=== PATIENT | male | born 1995 ===

== ENCOUNTER 2018-11-25 04:48 | Observation (INO) | payer OTHER ==
[2018-11-25] MEDS ORDERED: Sodium Chloride 0.9% 1,000 ML IV ONE (05:01)
--- NOTE | 2018-11-25 05:22 | ED PDOC ---
Arrival/HPI - General Chief Complaint: Back Pain Time Seen by Provider: 11/25/18 04:51 Historian: Patient - History of Present Illness Narrative History of Present Illness (Text): 11/25/18 05:19 A 23 year old male, with no significant past medical history, presents to the emergency department with complaint of onset of neck pain 3 days ago. Last night associated with onset of fever. He denies any back pain,throat pain, nausea/ vomiting/ diarrhea, arm or leg weakness, history of any trauma. Time/Duration: Other (3 days) Symptom Onset: Gradual Symptom Course: Unchanged Activities at Onset: Rest, Light Context: Home Past Medical History - Provider Review Nursing Documentation Reviewed: Yes Primary Care Provider: Maciej Paulino - Infectious Disease Hx of Infectious Diseases: None - Psychiatric Hx Substance Use: No Family/Social History - Physician Review Nursing Documentation Reviewed: Yes Family/Social History: No Known Family HX Smoking Status: Never Smoked Hx Alcohol Use: Yes Frequency of alcohol use: Socially Hx Substance Use: No Allergies/Home Meds Allergies/Adverse Reactions: Allergies No Known Allergies Allergy (Verified 11/25/18 04:52) Home Medications: Home Meds Medication Instructions Recorded Confirmed No Known Home Med 11/25/18 11/25/18 Review of Systems - Physician Review All systems were reviewed & negative as marked: Yes - Review of Systems Constitutional: Fevers Respiratory: absent: SOB, Cough Cardiovascular: absent: Chest Pain, ANTONY Gastrointestinal: absent: Abdominal Pain, Stool Changes, Diarrhea, Nausea, Vomiting Genitourinary Male: absent: Urinary Output Changes Musculoskeletal: Neck Pain. absent: Back Pain Neurological: absent: Headache, Dizziness Physical Exam Vital Signs Reviewed: Yes Vital Signs Temp Pulse Resp BP Pulse Ox 11/25/18 04:53 102.0 F H 126 H 20 130/87 100 Temperature: Febrile Blood Pressure: Normal Pulse: Tachycardic Respiratory Rate: Normal Appearance: Positive for: Well-Appearing, Non-Toxic, Comfortable Pain Distress: None Mental Status: Positive for: Alert and Oriented X 3 - Systems Exam Head: Present: Atraumatic, Normocephalic Pupils: Present: PERRL Extroacular Muscles: Present: EOMI Conjunctiva: Present: Normal Mouth: Present: Moist Mucous Membranes Neck: Present: Normal Range of Motion, Meningeal Signs (+Brudzinski Neg.- Kernig), Other (nucal rigidity. No dorsal spinal tenderness. ) Respiratory/Chest: Present: Clear to Auscultation, Good Air Exchange. No: Respiratory Distress, Accessory Muscle Use Cardiovascular: Present: Regular Rate and Rhythm, Normal S1, S2. No: Murmurs Abdomen: No: Tenderness, Distention, Peritoneal Signs Back: Present: Normal Inspection Upper Extremity: Present: Normal Inspection. No: Cyanosis, Edema Lower Extremity: Present: Normal Inspection. No: Edema Neurological: Present: GCS=15, CN II-XII Intact, Speech Normal, Motor Func Grossly Intact, Normal Sensory Function Skin: Present: Warm, Dry, Normal Color. No: Rashes Psychiatric: Present: Alert, Oriented x 3, Normal Insight, Normal Concentration Medical Decision Making ED Course and Treatment: 11/25/18 05:21 Impression: A 23 year old male presents to the emergency department with complaint of fever and neck pain. Plan: -- EKG -- Chest X-ray -- Labs -- Urinalysis -- Blood/ Urine Culture -- Tylenol and IV Fluids -- Reassess and disposition Prior Visits: Notes and results from previous visits were reviewed. Progress Notes: 11/25/18 05:50 Sinus tachycardia@125, no acute changes 11/25/18 07:03 Case was discussed with the hospitalist /accepts to the hospitalist service/to emergency department to evaluate patient /follow up care - Lab Interpretations I have reviewed the lab results: Yes - RAD Interpretation Narrative RAD Interpretations (Text): 11/25/18 06:58 CXR-No acute process Radiology Orders: 11/25/18 05:02 CHEST PORTABLE [RAD] Stat Railroad Operator: ED Physician - EKG Interpretation Interpreted by ED Physician: Yes Type: 12 lead EKG - Medication Orders Current Medication Orders: Sodium Chloride (Sodium Chloride 0.9%) 1,000 mls @ 2,000 mls/hr IV .Q30M ONE Stop: 11/25/18 05:30 Discontinued Medications Acetaminophen (Tylenol 325mg Tab) 650 mg PO STAT STA Stop: 11/25/18 05:04 Procedures - Additional Procedures Additional Procedures: lumbar puncture Progress: Area was prepped and draped using sterile technique/lateral decubitus position/cleansed with Betadine/1% Lidocaine to the area to anesthetize/25 gauge needle was inserted in the lumbar vertebral interspace/non traumatic with CSF fluid obtained for analysis /procedure was tolerated well - Scribe Statement The provider has reviewed the documentation as recorded by the Scribe Adilene Henriquez Provider Janibe Attestation: All medical record entries made by the Scribe were at my direction and personally dictated by me. I have reviewed the chart and agree that the record accurately reflects my personal performance of the history, physical exam, medical decision making, and the department course for this patient. I have also personally directed, reviewed, and agree with the discharge instructions and disposition. Disposition/Present on Arrival - Present on Arrival Any Indicators Present on Arrival: No History of DVT/PE: No History of Uncontrolled Diabetes: No Urinary Catheter: No History of Decub. Ulcer: No History Surgical Site Infection Following: None - Disposition Have Diagnosis and Disposition been Completed?: Yes Diagnosis: SIRS (systemic inflammatory response syndrome), Fever, Neck pain, Neck stiffness Disposition: HOSPITALIZED Disposition Time: 06:55 Patient Problems: Current Active Problems Problem Status Onset Fever Acute Neck pain Acute Neck stiffness Acute SIRS (systemic inflammatory response syndrome) Acute Condition: STABLE
[2018-11-25 05:37] LABS: VENOUS BLOOD GAS BASE EXCESS 2.2 mmol/L (0.0-2.0); VENOUS BLOOD GAS PO2 76 mm/Hg (30-55); VENOUS BLOOD PH 7.39 (7.32-7.43)
[2018-11-25 05:50] LABS: EOS % 0.1 % (1.5-5.0); HEMOGLOBIN 14.9 g/dL (14.0-18.0); INR 1.13; LYMPH # 0.7 (1.2-3.4); LYMPH % 6.6 % (22.0-35.0); MEAN CELL VOLUME 83.5 fl (80.0-105.0); MEAN CORPUSCULAR HGB CONC 32.3 g/dl (31.0-37.0); MEAN PLATELET VOLUME 10.2 fl (7.0-11.0); MONO % 9.8 % (1.0-6.0); PARTIAL THROMBOPLASTIN TIME 33.1 Seconds (26.9-38.3); PROTHROMBIN TIME 12.8 SECONDS (9.4-12.5); RBC 5.52 10^6/uL (3.5-6.1); RED CELL DISTRIBUTION WIDTH 13.6 % (11.5-14.5)
[2018-11-25] MEDS ORDERED: Lidocaine 1% Inj (20ml) ONE (06:05)
[2018-11-25] MEDS ORDERED: cefTRIAXone 2 GM IN NS 2 GM/100 ML BAG IVPB STA (06:16)
[2018-11-25] MEDS ORDERED: Vancomycin 1gm in NS 250ml 1 GM/250 ML BAG IVPB STA (06:17)
[2018-11-25 06:30] LABS: FLUID TYPE SPINAL FLUID
[2018-11-25] MEDS ORDERED: Dexamethasone 20 mg / 5 ml Inj IVP STA (07:20)
[2018-11-25 08:13] LABS: CSF APPEARANCE CLEAR/COLORLESS (CLEAR); CSF VOLUME 2 mL (0-1)
[2018-11-25] MEDS ORDERED: Vancomycin 1.5 GM in Sodium Chloride 0.9% 500 ML IVPB SCH (08:15)
[2018-11-25] MEDS ORDERED: Sodium Chloride 0.9% 1,000 ML IV SCH (08:15)
[2018-11-25 08:37] LABS: ALB/GLOB RATIO 1.1 (1.1-1.8); ALBUMIN 3.2 g/dL (3.0-4.8); ALT/SGPT 39 U/L (7-56); AST/SGOT 23 U/L (17-59); BLOOD UREA NITROGEN 14 mg/dL (7-21); CALCIUM 7.7 mg/dL (8.4-10.5); GFR NON-AFRICAN AMERICAN > 60
[2018-11-25 09:22] LABS: PH,URINE 6.5 (4.7-8.0); URINE BILIRUBIN NEGATIVE (NEGATIVE); URINE BLOOD NEGATIVE (NEGATIVE); URINE GLUCOSE (UA) NEGATIVE (NEGATIVE); URINE LEUKOCYTE ESTERASE NEGATIVE Leu/uL (NEGATIVE); URINE PROTEIN NEGATIVE mg/dL (<30 mg/dL); URINE UROBILINOGEN 0.2 E.U./dL (<1 E.U./dL)
[2018-11-25] MEDS ORDERED: Sodium Chloride 0.9% 1,000 ML IV STA (09:26)
[2018-11-25] MEDS ORDERED: Magnesium Sulfate 2 gm/50 ml 2 GM/50 ML BAG IVPB ONE (09:30)
[2018-11-25 09:31] LABS: URINE APPEARANCE CLEAR (CLEAR); URINE COLOR YELLOW (YELLOW)
--- NOTE | 2018-11-25 10:24 | CT ---
Date of service: 11/25/2018 PROCEDURE: CT HEAD WITHOUT CONTRAST. HISTORY: r/o meningitis COMPARISON: None available. TECHNIQUE: Axial computed tomography images were obtained through the head/brain without intravenous contrast. Supplemental Coronal and Sagittal projections created and reviewed. Radiation dose: Total exam DLP = 716.71 mGy-cm. This CT exam was performed using one or more of the following dose reduction techniques: Automated exposure control, adjustment of the mA and/or kV according to patient size, and/or use of iterative reconstruction technique. FINDINGS: HEMORRHAGE: No intracranial hemorrhage. BRAIN: No mass effect or edema. No atrophy or chronic microvascular ischemic changes. VENTRICLES: Unremarkable. No hydrocephalus. CALVARIUM: Unremarkable. PARANASAL SINUSES: Unremarkable as visualized. No significant inflammatory changes. MASTOID AIR CELLS: Unremarkable as visualized. No inflammatory changes. OTHER FINDINGS: None. IMPRESSION: No acute intracranial abnormalities. No significant findings to account for the clinical presentation. Limitations of the current examination: Unenhanced CT is an insensitive and inaccurate study in the assessment of clinically suspected meningitis. Recommended procedure of choice: MRI brain.
--- NOTE | 2018-11-25 10:27 | CT ---
Date of service: 11/25/2018 PROCEDURE: CT Cervical Spine without contrast HISTORY: Meningitis suspected. Systemic inflammatory response additional clinical information provided. COMPARISON: None available. TECHNIQUE: Axial computed tomography images were obtained of the cervical spine without the use of intravenous contrast. Coronal and sagittal reformatted images were created and reviewed. Radiation dose: Total exam DLP = 665.07 mGy-cm. This CT exam was performed using one or more of the following dose reduction techniques: Automated exposure control, adjustment of the mA and/or kV according to patient size, and/or use of iterative reconstruction technique. FINDINGS: VERTEBRAE: Mild kyphosis replaces anatomic lordosis. Point of maximum angulation C3-4. DISCS/SPINAL CANAL/NEURAL FORAMINA: No significant central canal or neural foraminal stenosis. Discs heights are grossly preserved. PARASPINAL SOFT TISSUES: Unremarkable. OTHER FINDINGS: None. IMPRESSION: Unremarkable CT of the cervical spine. Limitations of the current examination: Unenhanced CT scan of the cervical spine lacks sensitivity and specificity for acute inflammatory processes including clinically suspected meningitis. Recommended procedure of choice: Cervical spine MRI.
--- NOTE | 2018-11-25 10:40 | CARD ---
APPROVED REPORT Date of service: 11/25/2018 EKG Measurement Heart [id number] <Conclusion> Sinus tachycardia Otherwise normal ECG
--- NOTE | 2018-11-25 11:50 | RAD ---
Date of service: 11/25/2018 HISTORY: Sepsis Patient COMPARISON: No prior. FINDINGS: LUNGS: No active pulmonary disease. PLEURA: No significant pleural effusion identified, no pneumothorax apparent. CARDIOVASCULAR: No atherosclerotic calcification present Normal. OSSEOUS STRUCTURES: No significant abnormalities. VISUALIZED UPPER ABDOMEN: Normal. OTHER FINDINGS: None. IMPRESSION: No active disease.
--- NOTE | 2018-11-25 12:32 | CP.PCM.HP ---
<Rogelio Sorenson - Last Filed: 11/25/18 12:05> History of Present Illness - History of Present Illness History of Present Illness: Internal Medicine H&P (Dr. Haro's Service) CC: Neck pain/Fever HPI: Mr. aGrcia is a 23 year old male with no significant past medical history who presents with fevers and neck pain. Patient is alert and oriented to person, place, time and event. Patient is accompanied by his mother who is at bedside. Patient reports that four days prior to arrival he developed a dull/aching pain in his posterior neck that started while patient was at rest. He denies ever having this pain in the past and also denies any trauma or significant inciting event to his recollection. He reports that this pain was constant at first but has been intermittent over the past 24-48 hours. He denies any radiation and reports that he experienced minimal relief with massage therapy provided by family. Last night, patient developed fevers/chills and decided that he needed to be further evaluated. Of note, patient is a college student but lives at home and not in a dormitory. He is also in a work-study program but does [employer] only for this. He denies having gotten any meningicoccal vaccine but does report that he had standard labs done by his PMD, Dr. Paulino. Patient reports that he has had no difficulty with ambulation and denies any sick contacts, seizures or focal neurological deficits. Further 12 point ROS reviewed with patient and is unremarkable at this time. In the ED, patient had an LP done and was started on empiric antibiotics for community acquired meningitis. PMH: Denies PSH: Denies Family History: Denies any significant family history Social History: Denies any tobacco, alcohol or illicit drug use; College student; Involved in work-study program with [employer]; Lives at home with family Allergies: NKDA Home Medications: Denies taking any regular medications either prescription or OTC PMD: Dr. Maciej Paulino Present on Admission - Present on Admission Any Indicators Present on Admission: No Review of Systems - Review of Systems Review of Systems: As stated in HPI, otherwise negative Past Patient History - Infectious Disease Hx of Infectious Diseases: None - Past Social History Smoking Status: Never Smoked - PSYCHIATRIC Hx Substance Use: No Meds Allergies/Adverse Reactions: Allergies Allergy/AdvReac Type Severity Reaction Status Date / Time No Known Allergies Allergy Verified 11/25/18 04:52 Physical Exam - Constitutional Appears: Non-toxic - Head Exam Head Exam: ATRAUMATIC, NORMOCEPHALIC - Eye Exam Eye Exam: EOMI, Normal appearance, PERRL. absent: Conjunctival injection, Nystagmus, Periorbital swelling, Periorbital tenderness, Scleral icterus Pupil Exam: NORMAL ACCOMODATION, PERRL. absent: Fixed, Irregular, Miosis, Mydriatic, Unequal - ENT Exam ENT Exam: Mucous Membranes Moist, Normal Exam, Normal External Ear Exam, Normal Oropharynx - Neck Exam Neck exam: Positive for: Meningismus, Tenderness (Posterior neck without any overlying erythema, skin lesions, or bony abnormality appreciated). Negative for: Full Rom, Lymphadenopathy, Normal Inspection, Thyromegaly (Kernig sign positive; Brudzinski's sign negative) - Respiratory Exam Respiratory Exam: Clear to Auscultation Bilateral, NORMAL BREATHING PATTERN. absent: Accessory Muscle Use, Chest Wall Tenderness, Decreased Breath Sounds, Prolonged Expiratory Phase, Rales, Rhonchi, Wheezes, Respiratory Distress, Stridor - Cardiovascular Exam Cardiovascular Exam: Tachycardia, REGULAR RHYTHM, +S1, +S2. absent: Bradycardia, Clicks, Diastolic murmur, Gallop, Irregular Rhythm, JVD, Rubs, +S4, Systolic Murmur - GI/Abdominal Exam GI & Abdominal Exam: Normal Bowel Sounds, Soft. absent: Distended, Guarding, Rebound, Rigid, Tenderness - Extremities Exam Extremities exam: Positive for: normal capillary refill, normal inspection, pedal pulses present. Negative for: calf tenderness, pedal edema - Back Exam Back exam: absent: CVA tenderness (L), CVA tenderness (R) - Neurological Exam Neurological exam: Alert, CN II-XII Intact, Oriented x3 - Psychiatric Exam Psychiatric exam: Normal Affect, Normal Mood - Skin Skin Exam: Dry, Intact, Warm Results - Vital Signs Recent Vital Signs: Last Vital Signs Temp 98.5 F 11/25/18 09:17 Pulse 109 H 11/25/18 09:17 Resp 20 11/25/18 09:17 BP 118/79 11/25/18 09:13 Pulse Ox 98 11/25/18 09:17 - Labs Result Diagrams: 11/25/18 05:13 11/25/18 07:40 Labs: Laboratory Results - last 24 hr 11/25/18 11/25/18 11/25/18 05:13 05:13 05:13 WBC 10.0 RBC 5.52 Hgb 14.9 Hct 46.1 MCV 83.5 MCH 27.0 MCHC 32.3 RDW 13.6 Plt Count 263 MPV 10.2 Neut % (Auto) 83.5 H Lymph % (Auto) 6.6 L [place] % (Auto) 9.8 H Eos % (Auto) 0.1 L Baso % (Auto) 0.0 Lymph # (Auto) 0.7 L [place] # (Auto) 1.0 H Eos # (Auto) 0.0 Baso # (Auto) 0.00 Absolute Neuts (auto) 8.38 H PT 12.8 H INR 1.13 APTT 33.1 pO2 76 H VBG pH 7.39 VBG pCO2 46.0 VBG HCO3 27.8 VBG Total CO2 29.2 H VBG O2 Sat (Calc) 97.3 H VBG Base Excess 2.2 H VBG Potassium 4.1 Sodium 135.0 Chloride 103.0 Glucose 95 Lactate 1.9 FiO2 21.0 Potassium Carbon Dioxide Anion Gap BUN Creatinine Est GFR ( Amer) Est GFR (Non-Af Amer) Random Glucose Calcium Phosphorus Magnesium Total Bilirubin AST ALT Alkaline Phosphatase Total Protein Albumin Globulin Albumin/Globulin Ratio Venous Blood Potassium 4.1 Urine Color Urine Appearance Urine pH Ur Specific [place] Urine Protein Urine Glucose (UA) Urine Ketones Urine Blood Urine Nitrate Urine Bilirubin Urine Urobilinogen Ur Leukocyte Esterase Fluid Type CSF Volume CSF Appearance CSF WBC CSF RBC CSF Total Cell Counted CSF Monos/Macrophages CSF Comment CSF Glucose CSF Total Protein Influenza Typ A,B (EIA) 11/25/18 11/25/18 11/25/18 06:15 06:15 07:40 WBC RBC Hgb Hct MCV MCH MCHC RDW Plt Count MPV Neut % (Auto) Lymph % (Auto) [place] % (Auto) Eos % (Auto) Baso % (Auto) Lymph # (Auto) [place] # (Auto) Eos # (Auto) Baso # (Auto) Absolute Neuts (auto) PT INR APTT pO2 VBG pH VBG pCO2 VBG HCO3 VBG Total CO2 VBG O2 Sat (Calc) VBG Base Excess VBG Potassium Sodium 139 Chloride 106 Glucose Lactate FiO2 Potassium 3.6 Carbon Dioxide 23 Anion Gap 14 BUN 14 Creatinine 0.8 Est GFR ( Amer) > 60 Est GFR (Non-Af Amer) > 60 Random Glucose 93 Calcium 7.7 L Phosphorus 3.8 Magnesium 1.6 L Total Bilirubin 0.3 AST 23 ALT 39 Alkaline Phosphatase 74 Total Protein 6.2 Albumin 3.2 Globulin 2.9 Albumin/Globulin Ratio 1.1 Venous Blood Potassium Urine Color Urine Appearance Urine pH Ur Specific [place] Urine Protein Urine Glucose (UA) Urine Ketones Urine Blood Urine Nitrate Urine Bilirubin Urine Urobilinogen Ur Leukocyte Esterase Fluid Type Spinal fluid CSF Volume 2 H CSF Appearance Clear/colorless CSF WBC 0.0 CSF RBC 32.0 H CSF Total Cell Counted TEST NOT PERFORMED CSF Monos/Macrophages TEST NOT PERFORMED CSF Comment None CSF Glucose 68 CSF Total Protein 41.0 Influenza Typ A,B (EIA) 11/25/18 11/25/18 08:59 09:00 WBC RBC Hgb Hct MCV MCH MCHC RDW Plt Count MPV Neut % (Auto) Lymph % (Auto) [place] % (Auto) Eos % (Auto) Baso % (Auto) Lymph # (Auto) [place] # (Auto) Eos # (Auto) Baso # (Auto) Absolute Neuts (auto) PT INR APTT pO2 VBG pH VBG pCO2 VBG HCO3 VBG Total CO2 VBG O2 Sat (Calc) VBG Base Excess VBG Potassium Sodium Chloride Glucose Lactate FiO2 Potassium Carbon Dioxide Anion Gap BUN Creatinine Est GFR ( Amer) Est GFR (Non-Af Amer) Random Glucose Calcium Phosphorus Magnesium Total Bilirubin AST ALT Alkaline Phosphatase Total Protein Albumin Globulin Albumin/Globulin Ratio Venous Blood Potassium Urine Color Yellow Urine Appearance Clear Urine pH 6.5 Ur Specific [place] 1.010 Urine Protein Negative Urine Glucose (UA) Negative Urine Ketones Negative Urine Blood Negative Urine Nitrate Negative Urine Bilirubin Negative Urine Urobilinogen 0.2 Ur Leukocyte Esterase Negative Fluid Type CSF Volume CSF Appearance CSF WBC CSF RBC CSF Total Cell Counted CSF Monos/Macrophages CSF Comment CSF Glucose CSF Total Protein Influenza Typ A,B (EIA) Negative for flu a/b Assessment & Plan - Assessment and Plan (Free Text) Assessment: 23 year old male with no significant past medical history who presents with fevers and neck pain. Patient had an LP done upon arrival and was started on empiric antibiotics for community acquired meningitis. Plan: 1. Systemic Inflammatory Response Syndrome -Patient presented with fever and tachycardia without leukocytosis, tachypnea, lactic acidosis or hypotension -Chest X-Ray, Urinalysis, CSF and Influenza serology were all unremarkable -HIV serology, blood, urine and CSF cultures pending -Started on empiric Vancomycin and Ceftriaxone for community acquired meningitis -Adjunctive Dexamethasone 1.5mg/kg IVP Q6 for community acquired meningitis -Tylenol PRN for fevers -Normal Saline at 100mls/hr; s/p two 1L boluses in ED -Isolation precautions as ordered -ID consulted, all recommendations appreciated 2. Neck Pain -CT Head and CT Cervical Spine were unremarkable -CSF unremarkable with gram stain/culture pending -Tylenol PRN for pain control 3. Hypomagnesemia -Replenished with 2gm Magnesium Sulfate -Repeat Magnesium level in the AM GI Prophylaxis: Protonix DVT Prophylaxis: SCD's Diet: Regular Code Status: Full Code Patient seen and case discussed with attending, Dr. Haro. Rogelio Sorenson PGY2 - Date & Time Date: 11/25/18 Time: 12:07 Decision To Admit - Pt Status Changed To: Hospital Disposition Of: Observation - . Bed Request Type: Med/Surg <Wesley Haro - Last Filed: 11/25/18 13:22> Results - Vital Signs Recent Vital Signs: Last Vital Signs Temp 98.1 F 11/25/18 12:55 Pulse 101 H 11/25/18 12:55 Resp 18 11/25/18 12:55 BP 110/76 11/25/18 12:55 Pulse Ox 98 11/25/18 12:55 - Labs Result Diagrams: 11/25/18 05:13 11/25/18 07:40 Labs: Laboratory Results - last 24 hr 11/25/18 11/25/18 11/25/18 05:13 05:13 05:13 WBC 10.0 RBC 5.52 Hgb 14.9 Hct 46.1 MCV 83.5 MCH 27.0 MCHC 32.3 RDW 13.6 Plt Count 263 MPV 10.2 Neut % (Auto) 83.5 H Lymph % (Auto) 6.6 L [place] % (Auto) 9.8 H Eos % (Auto) 0.1 L Baso % (Auto) 0.0 Lymph # (Auto) 0.7 L [place] # (Auto) 1.0 H Eos # (Auto) 0.0 Baso # (Auto) 0.00 Absolute Neuts (auto) 8.38 H PT 12.8 H INR 1.13 APTT 33.1 pO2 76 H VBG pH 7.39 VBG pCO2 46.0 VBG HCO3 27.8 VBG Total CO2 29.2 H VBG O2 Sat (Calc) 97.3 H VBG Base Excess 2.2 H VBG Potassium 4.1 Sodium 135.0 Chloride 103.0 Glucose 95 Lactate 1.9 FiO2 21.0 Potassium Carbon Dioxide Anion Gap BUN Creatinine Est GFR ( Amer) Est GFR (Non-Af Amer) Random Glucose Calcium Phosphorus Magnesium Total Bilirubin AST ALT Alkaline Phosphatase Total Protein Albumin Globulin Albumin/Globulin Ratio Venous Blood Potassium 4.1 Urine Color Urine Appearance Urine pH Ur Specific [place] Urine Protein Urine Glucose (UA) Urine Ketones Urine Blood Urine Nitrate Urine Bilirubin Urine Urobilinogen Ur Leukocyte Esterase Fluid Type CSF Volume CSF Appearance CSF WBC CSF RBC CSF Total Cell Counted CSF Monos/Macrophages CSF Comment CSF Glucose CSF Total Protein Influenza Typ A,B (EIA) 11/25/18 11/25/18 11/25/18 06:15 06:15 07:40 WBC RBC Hgb Hct MCV MCH MCHC RDW Plt Count MPV Neut % (Auto) Lymph % (Auto) [place] % (Auto) Eos % (Auto) Baso % (Auto) Lymph # (Auto) [place] # (Auto) Eos # (Auto) Baso # (Auto) Absolute Neuts (auto) PT INR APTT pO2 VBG pH VBG pCO2 VBG HCO3 VBG Total CO2 VBG O2 Sat (Calc) VBG Base Excess VBG Potassium Sodium 139 Chloride 106 Glucose Lactate FiO2 Potassium 3.6 Carbon Dioxide 23 Anion Gap 14 BUN 14 Creatinine 0.8 Est GFR ( Amer) > 60 Est GFR (Non-Af Amer) > 60 Random Glucose 93 Calcium 7.7 L Phosphorus 3.8 Magnesium 1.6 L Total Bilirubin 0.3 AST 23 ALT 39 Alkaline Phosphatase 74 Total Protein 6.2 Albumin 3.2 Globulin 2.9 Albumin/Globulin Ratio 1.1 Venous Blood Potassium Urine Color Urine Appearance Urine pH Ur Specific [place] Urine Protein Urine Glucose (UA) Urine Ketones Urine Blood Urine Nitrate Urine Bilirubin Urine Urobilinogen Ur Leukocyte Esterase Fluid Type Spinal fluid CSF Volume 2 H CSF Appearance Clear/colorless CSF WBC 0.0 CSF RBC 32.0 H CSF Total Cell Counted TEST NOT PERFORMED CSF Monos/Macrophages TEST NOT PERFORMED CSF Comment None CSF Glucose 68 CSF Total Protein 41.0 Influenza Typ A,B (EIA) 11/25/18 11/25/18 08:59 09:00 WBC RBC Hgb Hct MCV MCH MCHC RDW Plt Count MPV Neut % (Auto) Lymph % (Auto) [place] % (Auto) Eos % (Auto) Baso % (Auto) Lymph # (Auto) [place] # (Auto) Eos # (Auto) Baso # (Auto) Absolute Neuts (auto) PT INR APTT pO2 VBG pH VBG pCO2 VBG HCO3 VBG Total CO2 VBG O2 Sat (Calc) VBG Base Excess VBG Potassium Sodium Chloride Glucose Lactate FiO2 Potassium Carbon Dioxide Anion Gap BUN Creatinine Est GFR ( Amer) Est GFR (Non-Af Amer) Random Glucose Calcium Phosphorus Magnesium Total Bilirubin AST ALT Alkaline Phosphatase Total Protein Albumin Globulin Albumin/Globulin Ratio Venous Blood Potassium Urine Color Yellow Urine Appearance Clear Urine pH 6.5 Ur Specific [place] 1.010 Urine Protein Negative Urine Glucose (UA) Negative Urine Ketones Negative Urine Blood Negative Urine Nitrate Negative Urine Bilirubin Negative Urine Urobilinogen 0.2 Ur Leukocyte Esterase Negative Fluid Type CSF Volume CSF Appearance CSF WBC CSF RBC CSF Total Cell Counted CSF Monos/Macrophages CSF Comment CSF Glucose CSF Total Protein Influenza Typ A,B (EIA) Negative for flu a/b Attending/Attestation - Attestation I have personally seen and examined this patient.: Yes I have fully participated in the care of the patient.: Yes I have reviewed all pertinent clinical information: Yes Notes (Text): 11/25/18 13:16 Attending note; Patient seen and examined with resident in ER. Patient's mother by the bedside. Patient is alert and awake. Currently denies any headache. Complaining of mild neck pain. Denies any nausea, vomiting. Denies any palpitation Patient had T-max of 103 this morning. Currently afebrile. Denies any abdominal pain, Diarrhea. Patient is a 23 year old male with no significant past medical history who presents with fevers and neck pain. Patient is alert and oriented to person, place, time and event. Patient is accompanied by his mother who is at bedside. 1. Fever and neck pain; suspected meningitis. status post lumbar puncture. Patient is currently alert and awake. Started on IV Rocephin and vancomycin and dexamethasone. Cell count is negative for WBCs and normal glucose. Not suggesting bacterial meningitis. Influenza ordered. Pending culture results. Blood cultures pending. ID evaluation requested. 2. Tachycardia; secondary to fever. Resolving. Continue IV fluids. 3. Prophylaxis with Protonix. Monitor patient closely. Diagnosis, treatment plan discussed with the patient and patient's mother in detail. 11/25/18 13:22
[2018-11-25 12:47] VITALS: BMI 29.8
[2018-11-25] MEDS: Vancomycin 1.5 GM in Sodium Chloride 0.9% 500 ML IVPB SCH ×2 (14:09→22:12)
[2018-11-25] MEDS: cefTRIAXone 2 GM IN NS 2 GM/100 ML BAG IVPB SCH (17:42)
[2018-11-25] MEDS: Sodium Chloride 0.9% 1,000 ML IV SCH ×2 (18:46→22:11)
--- NOTE | 2018-11-25 20:29 | CON ---
DATE: 11/25/2018 LOCATION: The patient was seen earlier today in room 578, bed 2. CHIEF COMPLAINT: Neck pain x3 days duration. HISTORY OF PRESENT ILLNESS: This is a 23-year-old male with no significant past medical history. His mother was in the bedroom with him. He is admitted with no past medical history. No surgical history. No allergies. There are no medications. He is a student, however, he has complained of fevers, but no chills. He is complaining of neck pain. He does not have any nausea or vomiting. No headache. No chest pain or shortness of breath. No cough. No hemoptysis. No abdominal pain, diarrhea or constipation. PAST MEDICAL HISTORY: Noncontributory. PAST SURGICAL HISTORY: Noncontributory. ALLERGIES: THE PATIENT HAS NO KNOWN ALLERGY. MEDICATIONS: There are no medications. PHYSICAL EXAMINATION: GENERAL: The patient is in bed. VITAL SIGNS: Temperature is 102, respiratory rate of 20, heart rate of 117 and blood pressure is 109/60. HEENT: Unremarkable. NECK: Supple. He does elicit tenderness when he flexes his neck. LUNGS: Decreased breath sounds. HEART: Normal, S1 and S2. ABDOMEN: Soft and nontender. LABORATORY DATA: Reveals the patient's white count is 10,000, hemoglobin of 14 and platelets of 253. BUN of 14 and creatinine is 0.8. Urinalysis is noted. CSF reveals the patient WBC's is 0 and RBC is 32. Serology is done. The head is negative, the cervical spine's CT is negative. Chest x-ray is negative. He has had no recent travel. He has had no recent dental work done. He is not exposed to tuberculosis. He was recently from [facility] but he has not been out of the [place] for many years. ASSESSMENT: A 23-year-old with SIRS (systemic inflammatory response syndrome) the etiology of which is not clear, on vancomycin. He will start vancomycin and Rocephin. The patient had a spinal tap, which reveals the patient to have only 32 RBC's, no WBC's in the spinal fluid and there is a normal protein and glucose. We will follow closely with you. The patient has systemic inflammatory response syndrome, source unclear, on vancomycin and Rocephin. MRI of the spine is , benign pulses, there is a C-reactive protein. Pankaj Slaughter MD
[2018-11-26] MEDS ORDERED: Pantoprazole 40 mg EC Tab PO SCH (06:00)
[2018-11-26] MEDS: Sodium Chloride 0.9% 1,000 ML IV SCH (06:29)
[2018-11-26] MEDS: cefTRIAXone 2 GM IN NS 2 GM/100 ML BAG IVPB SCH (06:32)
[2018-11-26] MEDS: Vancomycin 1.5 GM in Sodium Chloride 0.9% 500 ML IVPB SCH (07:02)
[2018-11-26 07:37] LABS: HEMOGLOBIN 13.5 g/dL (14.0-18.0); LYMPH # 1.2 (1.2-3.4); LYMPH % 9.2 % (22.0-35.0); MEAN CELL VOLUME 83.3 fl (80.0-105.0); MEAN CORPUSCULAR HEMOGLOBIN 27.1 pg (25.0-35.0); MEAN CORPUSCULAR HGB CONC 32.5 g/dl (31.0-37.0); MEAN PLATELET VOLUME 9.7 fl (7.0-11.0); MONO % 7.7 % (1.0-6.0); RBC 4.98 10^6/uL (3.5-6.1); RED CELL DISTRIBUTION WIDTH 13.6 % (11.5-14.5); WHITE BLOOD COUNT 13.5 10^3/uL (4.5-11.0)
[2018-11-26 07:51] LABS: ALB/GLOB RATIO 1.1 (1.1-1.8); ALBUMIN 3.7 g/dL (3.0-4.8); ALT/SGPT 32 U/L (7-56); AST/SGOT 21 U/L (17-59); BLOOD UREA NITROGEN 11 mg/dL (7-21); CALCIUM 8.4 mg/dL (8.4-10.5); GFR NON-AFRICAN AMERICAN > 60
--- NOTE | 2018-11-26 09:24 | CP.PCM.PN ---
Subjective - Date & Time of Evaluation Date of Evaluation: 11/26/18 Time of Evaluation: 09:21 - Subjective Subjective: Braulio Biswas DO, PGY-1 Hospitalist Progress Note for Dr. Jocelyn Myles Patient was seen and examined at bedside this AM. No acute events overnight and remained afebrile. He continues to complain of persistent neck pain but ot herwise denies fever/chills, CP, SOB, abd pain/nausea/vomiting, worsened WALLER, vision changes, or urinary complaints. Objective - Vital Signs/Intake and Output Vital Signs (last 24 hours): Temp Pulse Resp BP Pulse Ox 97.8 F 89 16 119/76 99 11/26/18 06:00 11/26/18 06:00 11/26/18 06:00 11/26/18 06:00 11/26/18 06:00 - Medications Medications: Current Medications Acetaminophen (Tylenol 325mg Tab) 650 mg PO Q6H PRN PRN Reason: Fever >100.4 F Acetaminophen (Tylenol 325mg Tab) 650 mg PO Q6H PRN PRN Reason: Pain, Mild (1-3) Ceftriaxone Sodium (Rocephin 2 Gm Ivpb) 2 gm in 100 mls @ 100 mls/hr IVPB Q12H JASON; Protocol Last Admin: 11/26/18 06:32 Dose: 100 mls/hr Vancomycin HCl 1.5 gm/ Sodium (Chloride) 500 mls @ 167 mls/hr IVPB Q8 JASON; Protocol Last Admin: 11/26/18 07:02 Dose: 167 mls/hr Sodium Chloride (Sodium Chloride 0.9%) 1,000 mls @ 200 mls/hr IV .Q5H JASON Last Admin: 11/26/18 06:29 Dose: 200 mls/hr Pantoprazole Sodium (Protonix Ec Tab) 40 mg PO 0600 JASON Last Admin: 11/26/18 06:29 Dose: 40 mg - Labs Labs: 11/26/18 07:00 11/26/18 07:00 PT 12.8 SECONDS (9.4-12.5) H 11/25/18 05:13 INR 1.13 11/25/18 05:13 APTT 33.1 Seconds (26.9-38.3) 11/25/18 05:13 - Constitutional Appears: Non-toxic, No Acute Distress - Head Exam Head Exam: ATRAUMATIC, NORMOCEPHALIC - Eye Exam Eye Exam: EOMI, PERRL - ENT Exam ENT Exam: Mucous Membranes Moist - Neck Exam Neck Exam: Meningismus (tender to palpation), Tenderness (cervical spine diffusely tender to palpation). absent: Lymphadenopathy - Respiratory Exam Respiratory Exam: Clear to Ausculation Bilateral, NORMAL BREATHING PATTERN. absent: Accessory Muscle Use, Rales, Rhonchi, Wheezes, Respiratory Distress - Cardiovascular Exam Cardiovascular Exam: REGULAR RHYTHM, RRR, +S1, +S2. absent: Gallop, Rubs, Murmur - GI/Abdominal Exam GI & Abdominal Exam: Soft, Normal Bowel Sounds. absent: Guarding, Tenderness - Extremities Exam Extremities Exam: Full ROM. absent: Pedal Edema - Back Exam Back Exam: NORMAL INSPECTION - Neurological Exam Neurological Exam: Alert, Awake, Oriented x3 Neuro motor strength exam: Left Upper Extremity: 5, Right Upper Extremity: 5, Left Lower Extremity: 5, Right Lower Extremity: 5 - Psychiatric Exam Psychiatric exam: Normal Affect, Normal Mood - Skin Skin Exam: Dry, Intact, Warm Assessment and Plan - Assessment and Plan (Free Text) Assessment: 23 yo M with no significant PMH who presents with fevers and neck pain. Patient had an LP done upon arrival and was started on empiric antibiotics for community acquired meningitis. Plan: 1. Systemic Inflammatory Response Syndrome -Patient presented with fever and tachycardia without leukocytosis, tachypnea, lactic acidosis or hypotension -Chest X-Ray, Urinalysis, CSF and Influenza serology were all unremarkable -HIV serology, blood, urine and CSF cultures pending -Started on empiric Vancomycin and Ceftriaxone for community acquired meningitis -Adjunctive Dexamethasone 1.5mg/kg IVP Q6 for community acquired meningitis -Tylenol PRN for fevers -Normal Saline at 100mls/hr; s/p two 1L boluses in ED -Isolation precautions as ordered -ID consulted, all recommendations appreciated 2. Neck Pain -CT Head and CT Cervical Spine were unremarkable -CSF unremarkable with gram stain/culture pending -Tylenol PRN for pain control 3. Hypomagnesemia -Replenished with 2gm Magnesium Sulfate -Repeat Magnesium level in the AM DVT/GI PPX: SCD/protonix Full Code Regular diet Monitor on med/surg Patient seen, examined with, and plan discussed with my attending Dr. Jocelyn Biswas, D.O. IM Resident PGY-1 Pager: [phone]
[2018-11-26] MEDS ORDERED: Gadodiamide 287 MG/ML VIAL (15ML) IV ONE (09:44)
--- NOTE | 2018-11-26 10:35 | MRI ---
Date of service: 11/26/2018 PROCEDURE: MR CERVICAL SPINE WITH AND WITHOUT CONTRAST HISTORY: neck pain possible discitis COMPARISON: 11/25/2018 CT TECHNIQUE: Multiecho multiplanar sequences were performed through the cervical spine with and without the use of intravenous contrast. FINDINGS: Straightening of the cervical spine Craniocervical junction unremarkable. Vertebral body heights preserved. No marrow signal abnormality. Normal cervical cord. No paraspinal abnormality. No abnormal enhancement C2-3: No disc herniation, spinal canal stenosis or neural foraminal narrowing. C3-4: No disc herniation, spinal canal stenosis or neural foraminal narrowing. Desiccation of the disc material. C4-5: No disc herniation, spinal canal stenosis or neural foraminal narrowing. Desiccation of the disc material C5-C6: No disc herniation, spinal canal stenosis or neural foraminal narrowing. Small left paracentral disc protrusion and desiccation of the disc material C6-C7: No disc herniation, spinal canal stenosis or neuroforaminal narrowing. C7-T1: No disc herniation, spinal canal stenosis or neural foraminal narrowing. OTHER FINDINGS: None. IMPRESSION: No evidence of disc space infection or osteomyelitis. Mild degenerative changes
[2018-11-26 14:17] VITALS: BP 113/64; PULSE 86; RESP 20; TEMP 98.7; O2SAT 98
--- NOTE | 2018-11-26 15:27 | CP.PCM.DIS ---
<Braulio Biswas - Last Filed: 11/26/18 15:16> Provider - Provider Date of Admission: 11/25/18 07:07 Attending physician: Kristen Myles DO Primary care physician: Maciej Paulino MD Consults: 11/25/18 07:26 Consult [Physician Consult] Routine Comment: Consulting Provider: Pankaj Slaughter Consulting Physician: Pankaj Slaughter Reason for Consult: r/o meningitis Time Spent in preparation of Discharge (in minutes): 40 Diagnosis - Discharge Diagnosis (1) Fever Status: Resolved (2) Neck pain Status: Resolved Hospital Course - Lab Results Lab Results: Micro Results 11/25/18 08:59 Urine Random Urine Culture - Final No Growth (<1,000 CFU/ML) 11/25/18 06:15 Cerebral Spinal Fluid Gram Stain - Final 11/25/18 06:15 Cerebral Spinal Fluid CSF Culture - Preliminary NO GROWTH AFTER 24 HOURS 11/25/18 07:20 Blood Blood Culture - Preliminary NO GROWTH AFTER 24 HOURS 11/25/18 05:13 Blood Blood Culture - Preliminary NO GROWTH AFTER 24 HOURS Most Recent Lab Values WBC 13.5 10^3/uL (4.5-11.0) H D 11/26/18 07:00 RBC 4.98 10^6/uL (3.5-6.1) 11/26/18 07:00 Hgb 13.5 g/dL (14.0-18.0) L 11/26/18 07:00 Hct 41.5 % (42.0-52.0) L 11/26/18 07:00 MCV 83.3 fl (80.0-105.0) 11/26/18 07:00 MCH 27.1 pg (25.0-35.0) 11/26/18 07:00 MCHC 32.5 g/dl (31.0-37.0) 11/26/18 07:00 RDW 13.6 % (11.5-14.5) 11/26/18 07:00 Plt Count 238 10^3/uL (120.0-450.0) 11/26/18 07:00 MPV 9.7 fl (7.0-11.0) 11/26/18 07:00 Neut % (Auto) 83.1 % (50.0-68.0) H 11/26/18 07:00 Lymph % (Auto) 9.2 % (22.0-35.0) L 11/26/18 07:00 [place] % (Auto) 7.7 % (1.0-6.0) H 11/26/18 07:00 Eos % (Auto) 0.0 % (1.5-5.0) L 11/26/18 07:00 Baso % (Auto) 0.0 % (0.0-3.0) 11/26/18 07:00 Lymph # (Auto) 1.2 (1.2-3.4) 11/26/18 07:00 [place] # (Auto) 1.0 (0.1-0.6) H 11/26/18 07:00 Eos # (Auto) 0.0 (0.0-0.7) 11/26/18 07:00 Baso # (Auto) 0.00 K/mm3 (0.0-2.0) 11/26/18 07:00 Absolute Neuts (auto) 11.18 (1.4-6.5) H 11/26/18 07:00 ESR 5 mm/hr (0.0-15.0) 11/25/18 07:40 PT 12.8 SECONDS (9.4-12.5) H 11/25/18 05:13 INR 1.13 11/25/18 05:13 APTT 33.1 Seconds (26.9-38.3) 11/25/18 05:13 pO2 76 mm/Hg (30-55) H 11/25/18 05:13 VBG pH 7.39 (7.32-7.43) 11/25/18 05:13 VBG pCO2 46.0 (40-60) 11/25/18 05:13 VBG HCO3 27.8 mmol/l (21-28) 11/25/18 05:13 VBG Total CO2 29.2 mmol.L (22-28) H 11/25/18 05:13 VBG O2 Sat (Calc) 97.3 % (40-65) H 11/25/18 05:13 VBG Base Excess 2.2 mmol/L (0.0-2.0) H 11/25/18 05:13 VBG Potassium 4.1 mmol/L (3.6-5.2) 05/05/19 05:13 Sodium 135.0 mmol/L (132-148) 11/25/18 05:13 Chloride 103.0 mmol/L (98-107) 11/25/18 05:13 Glucose 95 mg/dl (75-110) 11/25/18 05:13 Lactate 1.9 mmol/L (0.7-2.1) 11/25/18 05:13 FiO2 21.0 % 11/25/18 05:13 Sodium 139 mmol/L (132-148) 11/26/18 07:00 Potassium 4.2 mmol/L (3.6-5.0) 11/26/18 07:00 Chloride 104 mmol/L (98-107) 11/26/18 07:00 Carbon Dioxide 29 mmol/L (21-33) 11/26/18 07:00 Anion Gap 11 (10-20) 11/26/18 07:00 BUN 11 mg/dL (7-21) 11/26/18 07:00 Creatinine 0.6 mg/dl (0.8-1.5) L 11/26/18 07:00 Est GFR ( Amer) > 60 11/26/18 07:00 Est GFR (Non-Af Amer) > 60 11/26/18 07:00 Random Glucose 114 mg/dL (70-110) H 11/26/18 07:00 Calcium 8.4 mg/dL (8.4-10.5) 11/26/18 07:00 Phosphorus 3.7 mg/dL (2.5-4.5) 11/26/18 07:00 Magnesium 2.2 mg/dL (1.7-2.2) 11/26/18 07:00 Total Bilirubin 0.2 mg/dL (0.2-1.3) 11/26/18 07:00 AST 21 U/L (17-59) 11/26/18 07:00 ALT 32 U/L (7-56) 11/26/18 07:00 Alkaline Phosphatase 72 U/L (38-126) 11/26/18 07:00 C-Reactive Protein 8.90 mg/L (0.0-9.9) 11/25/18 07:40 Total Protein 7.0 g/dL (5.8-8.3) 11/26/18 07:00 Albumin 3.7 g/dL (3.0-4.8) 11/26/18 07:00 Globulin 3.3 gm/dL 11/26/18 07:00 Albumin/Globulin Ratio 1.1 (1.1-1.8) 11/26/18 07:00 Procalcitonin < 0.05 NG/ML (0.19-0.49) L 11/26/18 08:20 Venous Blood Potassium 4.1 mmol/L (3.6-5.2) 11/25/18 05:13 Urine Color Yellow (YELLOW) 11/25/18 08:59 Urine Appearance Clear (CLEAR) 11/25/18 08:59 Urine pH 6.5 (4.7-8.0) 11/25/18 08:59 Ur Specific [place] 1.010 (1.005-1.035) 11/25/18 08:59 Urine Protein Negative mg/dL (<30 mg/dL) 11/25/18 08:59 Urine Glucose (UA) Negative mg/dL (NEGATIVE) 11/25/18 08:59 Urine Ketones Negative mg/dL (NEGATIVE) 11/25/18 08:59 Urine Blood Negative (NEGATIVE) 11/25/18 08:59 Urine Nitrate Negative (NEGATIVE) 11/25/18 08:59 Urine Bilirubin Negative (NEGATIVE) 11/25/18 08:59 Urine Urobilinogen 0.2 E.U./dL (<1 E.U./dL) 11/25/18 08:59 Ur Leukocyte Esterase Negative [place]/uL (NEGATIVE) 11/25/18 08:59 Fluid Type Spinal fluid 11/25/18 06:15 CSF Volume 2 mL (0-1) H 11/25/18 06:15 CSF Appearance Clear/colorless (CLEAR) 11/25/18 06:15 CSF WBC 0.0 /uL (0.0-5.0) 11/25/18 06:15 CSF RBC 32.0 /uL (0.0-0.0) H 11/25/18 06:15 CSF Total Cell Counted TEST NOT PERFORMED 11/25/18 06:15 CSF Monos/Macrophages TEST NOT PERFORMED 11/25/18 06:15 CSF Comment None 11/25/18 06:15 CSF Glucose 68 mg/dL (40-70) 11/25/18 06:15 CSF Total Protein 41.0 mg/dL (12-60) 11/25/18 06:15 Influenza Typ A,B (EIA) Negative for flu a/b (NEGATIVE) 11/25/18 09:00 - Hospital Course Hospital Course: Braulio Biswas DO, PGY-1 Hospitalist Discharge Summary for Dr. Jocelyn Myles Prior to admission: Patient is a 23 year old male with no significant PMH who presented with fevers and neck pain. Patient had an LP done upon arrival and was started on empiric antibiotics for community acquired meningitis. Patient was admitted for monitoring as he is a non-vaccinated college student, although he denies living in dorms or other close facilities. Hospitalization course: Patient underwent LP in ED and was started on vanc/rocephin. On repeat examination this AM, patient reports his neck pain has resolved. He was afebrile overnight without other SIRS. He remains AA/o x 3 without focal deficits and is moving all extremities without difficulty. He does not complain of any WALLER or vision changes either. CT head, CT C-spine, and MRI C- spine were completed and were without concerning findings. Case was discussed with ID, Dr. Slaughter, who agrees patient is safe for discharge without abx. Discharge plan was discussed with patient in detail and work/school note was given. All questions were answered. Patient seen, examined, and discharge plan discussed with my attending Dr. Jocelyn Biswas D.O. IM Resident PGY-1 Discharge Exam - Head Exam Head Exam: ATRAUMATIC, NORMOCEPHALIC - Eye Exam Eye Exam: EOMI, PERRL - ENT Exam ENT Exam: Mucous Membranes Moist - Neck Exam Neck exam: Full Rom, Normal Inspection, Tenderness (mild tenderness to palpation, no meningismus) - Respiratory Exam Respiratory Exam: Clear to PA & Lateral, NORMAL BREATHING PATTERN, UNREMARKABLE. absent: Accessory Muscle Use, Rales, Rhonchi, Wheezes, Respiratory Distress - Cardiovascular Exam Cardiovascular Exam: REGULAR RHYTHM, RRR, +S1, +S2. absent: Diastolic murmur, Gallop, Rubs, Systolic Murmur - GI/Abdominal Exam GI & Abdominal Exam: Normal Bowel Sounds, Soft, Unremarkable. absent: Tenderness - Extremities Exam Extremities exam: full ROM, normal inspection - Back Exam Back exam: NORMAL INSPECTION - Neurological Exam Neurological exam: Alert, Oriented x3 - Psychiatric Exam Psychiatric exam: Normal Affect, Normal Mood - Skin Skin Exam: Dry, Intact, Warm Discharge Plan - Follow Up Plan Condition: STABLE Disposition: HOME/ ROUTINE Instructions: Neck Pain, Fever, Adult (DC), When to Worry About a Fever Additional Instructions: Please follow up with your primary medical doctor, Dr. Paulino, within 3-5 days of discharge. You may continue to take tylenol for pain, fever, and neck pain as needed. If your symptoms return or you experience new concerning symptoms, please return to the nearest emergency department. Referrals: Maciej Paulino MD [Primary Care Provider] - <Kristen Myles - Last Filed: 11/28/18 17:18> Provider - Provider Date of Admission: 11/25/18 07:07 Attending physician: Kristen Myles DO Primary care physician: Maciej Paulino MD Consults: 11/25/18 07:26 Consult [Physician Consult] Routine Comment: Consulting Provider: Pankaj Slaughter Consulting Physician: Pankaj Slaughter Reason for Consult: r/o meningitis Hospital Course - Lab Results Lab Results: Micro Results 11/25/18 06:15 Cerebral Spinal Fluid Gram Stain - Final 11/25/18 06:15 Cerebral Spinal Fluid CSF Culture - Preliminary NO GROWTH AFTER 3 DAYS 11/25/18 07:20 Blood Blood Culture - Preliminary NO GROWTH AFTER 3 DAYS 11/25/18 05:13 Blood Blood Culture - Preliminary NO GROWTH AFTER 3 DAYS 11/25/18 08:59 Urine Random Urine Culture - Final No Growth (<1,000 CFU/ML) Most Recent Lab Values WBC 13.5 10^3/uL (4.5-11.0) H D 11/26/18 07:00 RBC 4.98 10^6/uL (3.5-6.1) 11/26/18 07:00 Hgb 13.5 g/dL (14.0-18.0) L 11/26/18 07:00 Hct 41.5 % (42.0-52.0) L 11/26/18 07:00 MCV 83.3 fl (80.0-105.0) 11/26/18 07:00 MCH 27.1 pg (25.0-35.0) 11/26/18 07:00 MCHC 32.5 g/dl (31.0-37.0) 11/26/18 07:00 RDW 13.6 % (11.5-14.5) 11/26/18 07:00 Plt Count 238 10^3/uL (120.0-450.0) 11/26/18 07:00 MPV 9.7 fl (7.0-11.0) 11/26/18 07:00 Neut % (Auto) 83.1 % (50.0-68.0) H 11/26/18 07:00 Lymph % (Auto) 9.2 % (22.0-35.0) L 11/26/18 07:00 [place] % (Auto) 7.7 % (1.0-6.0) H 11/26/18 07:00 Eos % (Auto) 0.0 % (1.5-5.0) L 11/26/18 07:00 Baso % (Auto) 0.0 % (0.0-3.0) 11/26/18 07:00 Lymph # (Auto) 1.2 (1.2-3.4) 11/26/18 07:00 [place] # (Auto) 1.0 (0.1-0.6) H 11/26/18 07:00 Eos # (Auto) 0.0 (0.0-0.7) 11/26/18 07:00 Baso # (Auto) 0.00 K/mm3 (0.0-2.0) 11/26/18 07:00 Absolute Neuts (auto) 11.18 (1.4-6.5) H 11/26/18 07:00 ESR 5 mm/hr (0.0-15.0) 11/25/18 07:40 PT 12.8 SECONDS (9.4-12.5) H 11/25/18 05:13 INR 1.13 11/25/18 05:13 APTT 33.1 Seconds (26.9-38.3) 11/25/18 05:13 pO2 76 mm/Hg (30-55) H 11/25/18 05:13 VBG pH 7.39 (7.32-7.43) 11/25/18 05:13 VBG pCO2 46.0 (40-60) 11/25/18 05:13 VBG HCO3 27.8 mmol/l (21-28) 11/25/18 05:13 VBG Total CO2 29.2 mmol.L (22-28) H 11/25/18 05:13 VBG O2 Sat (Calc) 97.3 % (40-65) H 11/25/18 05:13 VBG Base Excess 2.2 mmol/L (0.0-2.0) H 11/25/18 05:13 VBG Potassium 4.1 mmol/L (3.6-5.2) 11/25/18 05:13 Sodium 135.0 mmol/L (132-148) 11/25/18 05:13 Chloride 103.0 mmol/L (98-107) 11/25/18 05:13 Glucose 95 mg/dl (75-110) 11/25/18 05:13 Lactate 1.9 mmol/L (0.7-2.1) 11/25/18 05:13 FiO2 21.0 % 11/25/18 05:13 Sodium 139 mmol/L (132-148) 11/26/18 07:00 Potassium 4.2 mmol/L (3.6-5.0) 11/26/18 07:00 Chloride 104 mmol/L (98-107) 11/26/18 07:00 Carbon Dioxide 29 mmol/L (21-33) 11/26/18 07:00 Anion Gap 11 (10-20) 11/26/18 07:00 BUN 11 mg/dL (7-21) 11/26/18 07:00 Creatinine 0.6 mg/dl (0.8-1.5) L 11/26/18 07:00 Est GFR ( Amer) > 60 11/26/18 07:00 Est GFR (Non-Af Amer) > 60 11/26/18 07:00 Random Glucose 114 mg/dL (70-110) H 11/26/18 07:00 Calcium 8.4 mg/dL (8.4-10.5) 11/26/18 07:00 Phosphorus 3.7 mg/dL (2.5-4.5) 11/26/18 07:00 Magnesium 2.2 mg/dL (1.7-2.2) 11/26/18 07:00 Total Bilirubin 0.2 mg/dL (0.2-1.3) 11/26/18 07:00 AST 21 U/L (17-59) 11/26/18 07:00 ALT 32 U/L (7-56) 11/26/18 07:00 Alkaline Phosphatase 72 U/L (38-126) 11/26/18 07:00 C-Reactive Protein 8.90 mg/L (0.0-9.9) 11/25/18 07:40 Total Protein 7.0 g/dL (5.8-8.3) 11/26/18 07:00 Albumin 3.7 g/dL (3.0-4.8) 11/26/18 07:00 Globulin 3.3 gm/dL 11/26/18 07:00 Albumin/Globulin Ratio 1.1 (1.1-1.8) 11/26/18 07:00 Procalcitonin < 0.05 NG/ML (0.19-0.49) L 11/26/18 08:20 Venous Blood Potassium 4.1 mmol/L (3.6-5.2) 11/25/18 05:13 Urine Color Yellow (YELLOW) 11/25/18 08:59 Urine Appearance Clear (CLEAR) 11/25/18 08:59 Urine pH 6.5 (4.7-8.0) 11/25/18 08:59 Ur Specific [place] 1.010 (1.005-1.035) 11/25/18 08:59 Urine Protein Negative mg/dL (<30 mg/dL) 11/25/18 08:59 Urine Glucose (UA) Negative mg/dL (NEGATIVE) 11/25/18 08:59 Urine Ketones Negative mg/dL (NEGATIVE) 11/25/18 08:59 Urine Blood Negative (NEGATIVE) 11/25/18 08:59 Urine Nitrate Negative (NEGATIVE) 11/25/18 08:59 Urine Bilirubin Negative (NEGATIVE) 11/25/18 08:59 Urine Urobilinogen 0.2 E.U./dL (<1 E.U./dL) 11/25/18 08:59 Ur Leukocyte Esterase Negative [place]/uL (NEGATIVE) 11/25/18 08:59 Fluid Type Spinal fluid 11/25/18 06:15 CSF Volume 2 mL (0-1) H 11/25/18 06:15 CSF Appearance Clear/colorless (CLEAR) 11/25/18 06:15 CSF WBC 0.0 /uL (0.0-5.0) 11/25/18 06:15 CSF RBC 32.0 /uL (0.0-0.0) H 11/25/18 06:15 CSF Total Cell Counted TEST NOT PERFORMED 11/25/18 06:15 CSF Monos/Macrophages TEST NOT PERFORMED 11/25/18 06:15 CSF Comment None 11/25/18 06:15 CSF Glucose 68 mg/dL (40-70) 11/25/18 06:15 CSF Total Protein 41.0 mg/dL (12-60) 11/25/18 06:15 HIV 1&2 Ag/Ab, 4th Gen Nonreactive (Nonreactive) 11/25/18 06:15 Influenza Typ A,B (EIA) Negative for flu a/b (NEGATIVE) 11/25/18 09:00 Attending/Attestation - Attestation I have personally seen and examined this patient.: Yes I have fully participated in the care of the patient.: Yes I have reviewed all pertinent clinical information, including history, physical exam and plan: Yes Notes (Text): Please note this DC summary is for 11/26/18 Patient seen and examined by me with resident at approximately 11:20AM and prior to discharge on 11/26/18. Case including discharge plan discussed with resident. Agree with above with following additions/corrections. Patient is a 23-year-old male with no significant past medical history that presented to emergency room with fevers and neck pain. Please see H&P for full details. Patient was found to have SIRS, neck pain, and hypomagnesemia. Patient had a fever of 102 and tachycardia on admission. Patient was initially placed on vancomycin and ceftriaxone for possible community-acquired meningitis. Patient was seen by ID. Is also placed on dexamethasone for possible community-acquired meningitis. CSF cultures were negative. Blood cultures were negative. Fevers and tachycardia resolved. CT spine of the neck per radiologist showed unremarkable CT of the cervical spine. MRI cervical spine per radiologist showed no evidence of disc space infection or osteomyelitis, mild degenerative changes. Patient had leukocytosis on discharge secondary to dexamethasone. Procalcitonin was less than 0.05. Patient's neck pain, tachycardia, and fevers resolved. Antibiotics were stopped per ID. Patient was cleared for discharge by ID. Patient was discharged home. On day of discharge, patient stated he was feeling much better. Neck pain resolved. No fevers or chills. No abdominal pain. No nausea or vomiting. No chest pain or palpitations. No shortness of breath. No dysuria. No headaches or dizziness. No diarrhea or constipation. Physical exam: General: Awake and alert lying in bed in no acute distress HEENT: Normocephalic, atraumatic. Extraocular muscles intact. Pupils equal and reactive, no scleral icterus. Oropharynx is pink and moist. Neck is supple. Cardiovascular: Normal rhythm. Normal S1 and S2. No murmurs, rubs, or gallops appreciated Pulmonary: Normal respiratory effort. No rhonchi, rales, or wheezing appreciated Gastrointestinal: Soft, nondistended. Nontender. Positive bowel sounds all 4 quadrants. No guarding. Musculoskeletal: Moves all extremities. No calf tenderness. No edema appreciated. Central nervous system: AAOx3. CN 2-12 grossly intact. 5/5 muscle strength all extremities. Dermatologic: Skin warm and dry. Please see chart for full details. Follow up instructions: Patient to follow up with primary care doctor within 3-5 days of discharge. All instructions explained to the patient in detail. Patient both understands and agrees to all instructions. Written instructions also given. Time spent in discharging the patient including chart review, medication reconciliation, discussion with the patient, remote medical coder, consultants, and nursing staff was approximately 40 minutes.
--- NOTE | 2018-11-27 00:57 | PN ---
DATE: 11/26/2018 SUBJECTIVE: Patient is in bed, in no acute distress, nontoxic. PHYSICAL EXAMINATION: VITAL SIGNS: Temperature is 98, blood pressure is 113/60, respiratory rate of 18, heart rate of 86. HEENT: Unremarkable. NECK: Supple. LUNGS: Decreased breath sounds. HEART: Normal S1 and S2. ABDOMEN: Soft. LABORATORY DATA: Reveals white count is 13.0. Chemistries are noted. Procalcitonin was detectable and CSF shows no evidence of meningitis. Influenza is negative. Microbiology reveals urine culture is negative. CSF culture negative. Blood culture is negative. Patient had an MRI of cervical spine, no evidence of disk space or osteomyelitis. ASSESSMENT AND PLAN: This is a 23-year-old with no significant past medical history admitted with systemic inflammatory response syndrome and neck pain. Initially, all cultures, MRI, CAT scans are negative. No clear source. Temperature of 102. Leukocytosis this morning. Patient did receive . Remainder of the workup is still pending. We will follow up with his primary medical doctor. Pankaj Slaughter MD
== END 2018-11-26 16:45 | disposition home or self-care (01) ==
LOC: ED 04:48 → ERH 07:07 → 5RSO 09:42
PROVIDERS: ADMIT Internal Medicine; ATTEND Hospitalist
DX: R50.9 Fever, unspecified (principal); M54.2 Cervicalgia; E83.42 Hypomagnesemia
CPT/HCPCS: 36415; 62270; 70450; 71045; 72125; 72156; 80053; 81003; 82803; 82945; 83735; 84100; 84145; 84157; 85025; 85610; 85651; 85730; 86140; 87040; 87070; 87086; 87536; 87804; 89050; 93005; 96365; 96366; 96367; 96375; 96376; 99285; A9579; G0378; J0696; J1100; J7030; J7040

== ENCOUNTER 2018-11-29 19:10 | Emergency (ER) | payer OTHER ==
[2018-11-29 19:10] VITALS: BMI 29.8
[2018-11-29] MEDS ORDERED: Sodium Chloride 0.9% 1,000 ML IV STA (19:52)
[2018-11-29 20:01] LABS: BASO # 0.01 K/mm3 (0.0-2.0); BASO % 0.1 % (0.0-3.0); EOS % 0.2 % (1.5-5.0); HEMOGLOBIN 14.8 g/dL (14.0-18.0); LYMPH % 14.9 % (22.0-35.0); MEAN CELL VOLUME 83.1 fl (80.0-105.0); MEAN CORPUSCULAR HEMOGLOBIN 27.5 pg (25.0-35.0); MEAN PLATELET VOLUME 9.7 fl (7.0-11.0); MONO # 0.5 (0.1-0.6); MONO % 3.9 % (1.0-6.0); RBC 5.39 10^6/uL (3.5-6.1); RED CELL DISTRIBUTION WIDTH 13.4 % (11.5-14.5); WHITE BLOOD COUNT 13.2 10^3/uL (4.5-11.0)
[2018-11-29 20:21] LABS: ALB/GLOB RATIO 1.2 (1.1-1.8); ALBUMIN 4.3 g/dL (3.0-4.8); ALT/SGPT 34 U/L (7-56); AST/SGOT 37 U/L (17-59); BLOOD UREA NITROGEN 18 mg/dL (7-21); CALCIUM 9.3 mg/dL (8.4-10.5); GFR NON-AFRICAN AMERICAN > 60
--- NOTE | 2018-11-29 20:48 | ED PDOC ---
Arrival/HPI - General Chief Complaint: Headache Time Seen by Provider: 11/29/18 19:31 Historian: Patient - History of Present Illness Narrative History of Present Illness (Text): 11/29/18 20:45 A 23 year old male presents to the emergency department complaining of 2 day history of frontal headache, nausea, vomiting, and intermittent dry cough. Patient reports he thinks having a lowgrade fever, which has since resolved. Patient states taking Tylenol for headache, which resolved the headache and later the symptom returned. Patient denies any other complaints at this time. Also, he mentions he was recently admitted 5 days ago overnight for headache, as well as fever and concern for meningitis. However all tests were following day. Past Medical History - Provider Review Nursing Documentation Reviewed: Yes - Infectious Disease Hx of Infectious Diseases: None - Neurological Hx Neurological Disorder: Yes Hx Meningitis: Yes - Musculoskeletal/Rheumatological Hx Falls: No - Psychiatric Hx Substance Use: No Family/Social History - Physician Review Nursing Documentation Reviewed: Yes Family/Social History: No Known Family HX Smoking Status: Never Smoked Hx Alcohol Use: Yes Hx Substance Use: No Allergies/Home Meds Allergies/Adverse Reactions: Allergies No Known Allergies Allergy (Verified 11/25/18 04:52) Review of Systems - Physician Review All systems were reviewed & negative as marked: Yes - Review of Systems Respiratory: Cough (intermittently) Gastrointestinal: Nausea, Vomiting Neurological: Headache (frontal region) Physical Exam Vital Signs Reviewed: Yes Vital Signs Temp Pulse Resp BP Pulse Ox 11/29/18 19:29 97.9 F 91 H 22 131/74 98 Temperature: Afebrile Blood Pressure: Normal Pulse: Regular Respiratory Rate: Normal Appearance: Positive for: Well-Appearing, Non-Toxic, Comfortable Pain Distress: None Mental Status: Positive for: Alert and Oriented X 3 - Systems Exam Head: Present: Atraumatic, Normocephalic Pupils: Present: PERRL Extroacular Muscles: Present: EOMI Conjunctiva: Present: Normal Mouth: Present: Moist Mucous Membranes Neck: Present: Normal Range of Motion Respiratory/Chest: Present: Clear to Auscultation, Good Air Exchange. No: Respiratory Distress, Accessory Muscle Use Cardiovascular: Present: Regular Rate and Rhythm, Normal S1, S2. No: Murmurs Abdomen: No: Tenderness, Distention, Peritoneal Signs Back: Present: Normal Inspection Upper Extremity: Present: Normal Inspection. No: Cyanosis, Edema Lower Extremity: Present: Normal Inspection. No: Edema Neurological: Present: GCS=15, CN II-XII Intact, Speech Normal Skin: Present: Warm, Dry, Normal Color. No: Rashes Psychiatric: Present: Alert, Oriented x 3, Normal Insight, Normal Concentration Medical Decision Making ED Course and Treatment: 11/29/18 20:46 Impression: 23 year old male with frontal headache, nausea, vomiting, and intermittent dry cough. Plan: -- Chest X-ray -- Toradol -- Zofran -- IV Fluids -- Labs -- Reassess and disposition Progress Notes: 11/29/18 21:47 Chest X-ray results, as interpreted by me, show no acute disease. Patient reports improvement of WALLER when he takes Tylenol and lies down. As he underwent LP during recent admission, headache possibly post-LP. No neurological deficits noted. 11/29/18 21:48 Upon reassessment, patient states headache has improved. States that he feels better. Patient stable at this time, to be discharged home. Advised keeping hydrated, taking acetaminophen or ibuprofen as needed for pain, and getting rest. - Lab Interpretations Lab Results: Total Bilirubin 0.6 mg/dL (0.2-1.3) 11/29/18 19:57 AST 37 U/L (17-59) 11/29/18 19:57 ALT 34 U/L (7-56) 11/29/18 19:57 Alkaline Phosphatase 82 U/L (38-126) 11/29/18 19:57 Total Protein 8.0 g/dL (5.8-8.3) 11/29/18 19:57 Albumin 4.3 g/dL (3.0-4.8) 11/29/18 19:57 Globulin 3.7 gm/dL 11/29/18 19:57 Albumin/Globulin Ratio 1.2 (1.1-1.8) 11/29/18 19:57 - RAD Interpretation Radiology Orders: 11/29/18 20:10 CXR [CHEST ONE VIEW] [RAD] Stat - Medication Orders Current Medication Orders: Sodium Chloride (Sodium Chloride 0.9%) 1,000 mls @ 999 mls/hr IV .Q1H1M STA Stop: 11/29/18 20:52 Last Admin: 11/29/18 20:14 Dose: 999 mls/hr eMAR Start Stop Document 11/29/18 20:14 IT (Rec: 11/29/18 20:14 IT [facility] [id number]) Intravenous Solution Start Date 11/29/18 Start Time 20:14 Discontinued Medications Ketorolac Tromethamine (Toradol) 30 mg IVP STAT STA Stop: 11/29/18 19:53 Last Admin: 11/29/18 20:14 Dose: 30 mg MAR Pain Assessment Document 11/29/18 20:14 IT (Rec: 11/29/18 20:15 IT [id number]) Pain Reassessment Is this a pain reassessment? No Sleep Is patient sleeping during reassessment? No Presence of Pain Presence of Pain Yes Pain Scale Used Protocol: PSCALES Pain Scale Used Numeric IVP Administration Document 11/29/18 20:14 IT (Rec: 11/29/18 20:15 IT [id number]) Charges for Administration # of IVP Administrations 1 Ondansetron HCl (Zofran Inj) 4 mg IVP STAT STA Stop: 11/29/18 19:53 Last Admin: 11/29/18 20:14 Dose: 4 mg IVP Administration Document 11/29/18 20:14 IT (Rec: 11/29/18 20:14 IT [id number]) Charges for Administration # of IVP Administrations 1 - Scribe Statement The provider has reviewed the documentation as recorded by the Maryjane Hyman Provider Scribe Attestation: All medical record entries made by the Scribe were at my direction and personally dictated by me. I have reviewed the chart and agree that the record accurately reflects my personal performance of the history, physical exam, medical decision making, and the department course for this patient. I have also personally directed, reviewed, and agree with the discharge instructions and disposition. Disposition/Present on Arrival - Present on Arrival Any Indicators Present on Arrival: No History of DVT/PE: No History of Uncontrolled Diabetes: No Urinary Catheter: No History of Decub. Ulcer: No History Surgical Site Infection Following: None - Disposition Have Diagnosis and Disposition been Completed?: Yes Diagnosis: Post lumbar puncture headache, Viral syndrome Disposition: HOME/ ROUTINE Disposition Time: 21:46 Condition: STABLE Discharge Instructions (ExitCare): Headache, Adult (DC), Viral Syndrome (DC) Additional Instructions: DHANESH RIZO, thank you for letting us take care of you today. Your provider was Allyssa Mendes MD and you were treated for COUGH, FEVER, HEADACHES, UNABLE TO KEEP FOOD DOWN. The emergency medical care you received today was directed at your acute symptoms. If you were prescribed any medication, please fill it and take as directed. It may take several days for your symptoms to resolve. Return to the Emergency Department if your symptoms worsen, do not improve, or if you have any other problems. Please contact your doctor or call one of the physicians/clinics you have been referred to that are listed on the Patient Visit Information form that is included in your discharge packet. Bring any paperwork you were given at discharge with you along with any medications you are taking to your follow up visit. Our treatment cannot replace ongoing medical care by a primary care provider outside of the emergency department. Thank you for allowing the [facility] team to be part of your care today. If you had an X-Ray or CT scan: A Radiologist will review the ED reading if any change in treatment is needed we will contact you. If you had a blood, urine, or wound culture: It will take several days for the results, if any change in treatment is needed we will contact you. If you had an STI test: It will take 48 hours for the results. Please call after 1 week if you have not heard back. Forms: [employer] (Danish), SCHOOL NOTE
[2018-11-29 22:01] VITALS: BP 112/68; PULSE 75; RESP 17; TEMP 97.7; O2SAT 99
--- NOTE | 2018-11-30 08:28 | RAD ---
HISTORY: cough COMPARISON: Chest x-ray performed 11/25/18 TECHNIQUE: Chest, one view. FINDINGS: LUNGS: No focal consolidation. Please note that chest x-ray has limited sensitivity for the detection of pulmonary masses. PLEURA: No significant pleural effusion identified. No definite pneumothorax . CARDIOVASCULAR: The cardiomediastinal silhouette appears within normal limits of size. No significant atherosclerotic calcification present. OSSEOUS STRUCTURES: No acute osseous abnormality identified. VISUALIZED UPPER ABDOMEN: Unremarkable. OTHER FINDINGS: None. IMPRESSION: No acute findings identified.
== END 2018-11-29 22:01 | disposition home or self-care (01) ==
LOC: ED 19:10
DX: B34.9 Viral infection, unspecified (principal); G97.1 Other reaction to spinal and lumbar puncture; Y84.4 Aspiration of fluid as the cause of abnormal reaction of the patient, or of later complication, without mention of misadventure at the time of the procedure; Y92.89 Other specified places as the place of occurrence of the external cause; G03.9 Meningitis, unspecified
CPT/HCPCS: 71045; 80053; 83735; 84100; 85025; 96374; 96375; 99285; J1885; J2405; J7030